=== PATIENT | female | born 1945 | race Caucasian/White ===

== ENCOUNTER 2017-06-01 12:45 | Emergency (ER) | payer MEDICARE, BC ==
--- NOTE | 2017-06-01 13:03 | UC ---
Cardiac HPI - HPI Summary HPI Summary: 71 YEAR OLD FEMALE PRESENTS WITH COMPLAINS OF LEFT SIDED CHEST PAIN, JAW CLAUDICATION AND SHORTNESS OF BREATH. I WILL SEND HER TO THE ER TO RULE OUT [place]. - History of Current Complaint Chief Complaint: UCGeneralIllness Stated Complaint: JAW PAIN,DIZZINESS,LOW BP Time Seen by Provider: 06/01/17 12:57 - Allergy/Home Medications Home Medications: Home Medications Aspirin [Aspirin 81 MG TAB] 4 tab 06/01/17 [History] Cetirizine* [ZyrTEC 10 MG TAB*] 10 mg PO DAILY 06/01/17 [History Confirmed 06/01] Divalproex DR TAB(*) [Depakote DR(*)] 500 mg PO QPM 06/01/17 [History Confirmed 06/01/17] Levothyroxine TAB* [Synthroid TAB*] 100 mcg PO DAILY 06/01/17 [History Confirmed 06/01/17] clonazePAM TAB(*) [KlonoPIN TAB(*)] 1 mg PO BEDTIME PRN 06/01/17 [History Confirmed 06/01/17] traMADol TAB* [Ultram*] 06/01/17 [History] Review of Systems Constitutional: Negative Skin: Negative Eyes: Negative ENT: Negative Respiratory: Negative Cardiovascular: Chest Pain Gastrointestinal: Negative Genitourinary: Negative Motor: Negative Neurovascular: Negative Musculoskeletal: Negative Neurological: Negative Psychological: Negative All Other Systems Reviewed And Are Negative: Yes Physical Exam Triage Information Reviewed: Yes Eye Exam: Normal ENT Exam: Normal Dental Exam: Normal Neck exam: Normal Neck: Positive: 1 Respiratory Exam: Normal Cardiovascular Exam: Normal Abdominal Exam: Normal Musculoskeletal Exam: Normal Neurological Exam: Normal Psychological Exam: Normal Skin Exam: Normal - Assessment/Plan Course Of Treatment: ER - Clinical Impression Provider Diagnoses: CHEST PAIN Discharge - Discharge Plan Condition: Critical Disposition: [facility] Referrals: Non Staff,Doctor [Primary Care Provider] -
[2017-06-01 13:14] VITALS: BP 141/95
== END 2017-06-01 13:14 | disposition short-term general hospital (02) ==
LOC: UCCORT 12:45
DX: R07.89 Other chest pain (principal); R68.84 Jaw pain; R06.02 Shortness of breath
CPT/HCPCS: 99203; G0463

== ENCOUNTER 2017-08-17 11:20 | Emergency (ER) | payer MEDICARE, BC ==
[2017-08-17 11:44] VITALS: BP 121/75
--- NOTE | 2017-08-17 11:47 | UC ---
Complaint Female HPI - HPI Summary HPI Summary: 72 year old with UTI Sx. no bleeding or fever. no n/v/d FOR TWO DAYS, BURNING OF LABIA. URGENCY. VOIDING IN SMALL AMTS. NO FEVER OR CHILLS. MID BACK PAIN. NO VAGINAL DISCHARGE , HAS NOTICED AN ODOR. [ End ] - History Of Current Complaint Chief Complaint: UCGU Stated Complaint: URINARY Time Seen by Provider: 08/17/17 11:42 Hx Obtained From: Patient Onset/Duration: Sudden Onset Timing: Constant Severity Initially: Mild Severity Currently: Mild Aggravating Factor(s): Urination Associated Signs And Symptoms: Positive: Negative - Allergies/Home Medications Allergies/Adverse Reactions: Allergies Allergy/AdvReac Type Severity Reaction Status Date / Time Hydrocodone Allergy Unknown ITCHING Verified 08/17/17 11:31 ALL OVER BODY Home Medications: Home Medications Azelastine 0.15% NASAL(NF) [Astepro 0.15% NASAL (NF)] 1 spray NASAL BID PRN [History Confirmed 08/17/17] Escitalopram Oxalate [Lexapro 20 mg] 10 mg PO DAILY 08/17/17 [History Confirmed 08/17/17] Fluorometholone 0.1% OPTH.JORGE ALBERTO* [Fml 0.1% Opth.susp*] 1 drop BID 08/17/17 [ History Confirmed 08/17/17] Naratriptan HCl [Amerge] 1 mg PO PRN 08/17/17 [History] SUMAtriptan TAB* [Imitrex TAB*] 100 mg PO SEE INSTRUCTIONS PRN 08/17/17 [ History Confirmed 08/17/17] Simvastatin TAB(NF) [Zocor 20 MG (NF)] 20 mg PO 1700 08/17/17 [History Confirmed 08/17/17] guaiFENesin ER TAB [Mucinex*] 600 mg PO BID PRN 08/17/17 [History Confirmed ] PMH/Surg Hx/FS Hx/Imm Hx Previously Healthy: Yes Endocrine History: Dyslipidemia - Surgical History Surgical History: Yes Surgery Procedure, Year, and Place: 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 RIGHT lobe thyroidectomy. Tonsils. Bladder surgery. VEIN LIGATION RIGHT LEG - Social History Occupation: Retired Lives: With Family Alcohol Use: Weekly Substance Use Type: None Smoking Status (MU): Never Smoked Tobacco Review of Systems Genitourinary: Dysuria All Other Systems Reviewed And Are Negative: Yes Physical Exam Triage Information Reviewed: Yes Appearance: Well-Appearing, No Pain Distress, Well-Nourished Vital Signs: Initial Vital Signs Temp 97.5 F 08/17/17 11:37 Pulse 77 08/17/17 11:37 Resp 20 08/17/17 11:37 BP 121/75 08/17/17 11:37 Pulse Ox 100 08/17/17 11:37 Vital Signs Reviewed: Yes Eye Exam: Normal ENT Exam: Normal Dental Exam: Normal Neck exam: Normal Neck: Positive: 1 Respiratory Exam: Normal Cardiovascular Exam: Normal Abdominal Exam: Normal Abdomen Description: Positive: Nontender, No Organomegaly, Soft. Negative: Bruit, CVA Tenderness (R), CVA Tenderness (L), Distended, Guarding Musculoskeletal Exam: Normal Neurological Exam: Normal Psychological Exam: Normal Skin Exam: Normal Complaint Female Dx - Course Course Of Treatment: No discjarge. Feels like previous UTI, declined pyridium. No CVA tenderness. - Differential Dx/Diagnosis Differential Diagnosis/HQI/PQRI: Ureteral Stone, Urinary Tract Infection Provider Diagnoses: UTI Discharge - Discharge Plan Condition: Good Disposition: HOME Prescriptions: Sulfamethox/Trimethoprim DS* [Bactrim DS 800/160 TAB*] 1 tab PO BID #10 tab Patient Education Materials: Urinary Tract Infection in Women (ED) Referrals: Non Staff,Doctor [Primary Care Provider] - 7 Days
== END 2017-08-17 12:10 | disposition home or self-care (01) ==
LOC: UCCORT 11:20
DX: N39.0 Urinary tract infection, site not specified (principal); E78.5 Hyperlipidemia, unspecified; Z88.5 Allergy status to narcotic agent
CPT/HCPCS: 81003; 87077; 87086; 87186; 99212; G0463